=== PATIENT | male | born 1985 | race Two or more races ===

== ENCOUNTER 2016-06-12 00:20 | Emergency (ER) | payer OTHER ==
[~2016-06-12] VITALS: Ht 175.3 cm; Wt 77.1 kg
[2016-06-12] MEDS ORDERED: KETOROLAC TROMETH 60MG/2ML VIAL IM ONE (02:30)
[2016-06-12 03:34] VITALS: BP 146/80
== END 2016-06-12 03:35 | disposition home or self-care (01) ==
LOC: ER 00:24
DX: S30.0XXA Contusion of lower back and pelvis, initial encounter (principal); W01.0XXA Fall on same level from slipping, tripping and stumbling without subsequent striking against object, initial encounter; Y93.89 Activity, other specified; Y99.8 Other external cause status; Y92.813 Airplane as the place of occurrence of the external cause
CPT/HCPCS: 70450; 72125; 72128; 96372; 99284; J1885

== ENCOUNTER 2016-06-30 11:54 | Emergency (ER) | payer OTHER ==
[~2016-06-30] VITALS: Ht 175.3 cm; Wt 79.4 kg
[2016-06-30 12:14] VITALS: BP 155/96
[2016-06-30] MEDS ORDERED: KETOROLAC TROMETH 60MG/2ML VIAL IM ONE (13:15)
== END 2016-06-30 14:34 | disposition home or self-care (01) ==
LOC: ER 11:54
CPT/HCPCS: 71020 ×2; 71250 ×2; 72100 ×2; 93005 ×2; 96372 ×2; 99284; J1885 ×2

== ENCOUNTER 2017-06-12 20:39 | Emergency (ER) | payer OTHER ==
[~2017-06-12] VITALS: Ht 175.3 cm; Wt 86.2 kg
[2017-06-12 21:00] VITALS: BP 133/99
== END 2017-06-12 23:33 | disposition left against medical advice (07) ==
LOC: ER 20:39
DX: G89.29 Other chronic pain (principal); M54.9 Dorsalgia, unspecified; Z53.21 Procedure and treatment not carried out due to patient leaving prior to being seen by health care provider

== ENCOUNTER 2017-06-13 10:33 | Emergency (ER) | payer OTHER ==
[~2017-06-13] VITALS: Ht 175.3 cm; Wt 83.5 kg
[2017-06-13 10:49] VITALS: BP 157/90
== END 2017-06-13 11:48 | disposition home or self-care (01) ==
LOC: ER 10:33
DX: G89.4 Chronic pain syndrome (principal); M54.5 Low back pain; M79.1 Myalgia